=== PATIENT | female | born 2000 | race Asian ===

== ENCOUNTER 2025-05-15 05:28 | Emergency (ER) | payer BC ==
[2025-05-15] MEDS ORDERED: Dexamethasone 10 MG/ML VIAL ONE (06:11)
[2025-05-15] MEDS ORDERED: Ibuprofen 200 MG TAB ONE (06:12)
[2025-05-15] MEDS ORDERED: Amoxicillin/Potassium Clav 875 MG TAB ONE (06:12)
== END 2025-05-15 06:30 | disposition home or self-care (01) ==
LOC: CSHERS 05:28
DX: J36 Peritonsillar abscess (principal)
CPT/HCPCS: 87428; 99283; J1100